=== PATIENT | female | born 1950 | race Two or more races ===

== ENCOUNTER 2017-06-11 19:35 | Emergency (ER) | payer OTHER ==
[~2017-06-11] VITALS: Ht 152.4 cm; Wt 67.1 kg
[~2017-06-11 19:35] MED LIST: ASA81 MG PO; DIOVAN40 MG PO
[2017-06-11] MEDS ORDERED: CARDIZEM60 MG (20:04)
== END 2017-06-11 22:02 | disposition home or self-care (01) ==
LOC: ER 19:35
DX: R07.89 Other chest pain (principal)

== ENCOUNTER 2018-07-10 08:41 | Outpatient (CLI) | payer OTHER ==
[~2018-07-10 08:41] MED LIST changes: +CARDIZEM60 MG
== END 2018-07-10 09:00 | disposition home or self-care (01) ==
LOC: MAMO-SONO 08:41
DX: Z12.31 Encounter for screening mammogram for malignant neoplasm of breast (principal); Z87.898 Personal history of other specified conditions; N60.11 Diffuse cystic mastopathy of right breast

== ENCOUNTER 2018-07-10 10:06 | Outpatient (CLI) | payer OTHER | END 2018-07-10 12:00 | disposition home or self-care (01) | LOC: NUCLEAR 10:06 | DX: N19 Unspecified kidney failure (principal); N13.9 Obstructive and reflux uropathy, unspecified | CPT/HCPCS: 78708; A9539 ==

== ENCOUNTER 2020-09-20 19:59 | Emergency (ER) | payer OTHER ==
[~2020-09-20] VITALS: Ht 154.9 cm; Wt 61.2 kg
[2020-09-20] MEDS ORDERED: FORTAMET500 MG (20:31)
[2020-09-20] MEDS ORDERED: XANAX XR2 MG (20:40)
[2020-09-21] MEDS ORDERED: INTESTINEX680 M1 PO (15:27)
[2020-09-21] MEDS ORDERED: PEPCID AC20 MG PO (15:27)
== END 2020-09-21 15:46 | disposition home or self-care (01) ==
LOC: ER 19:59
DX: K52.89 Other specified noninfective gastroenteritis and colitis (principal); E87.6 Hypokalemia; R11.2 Nausea with vomiting, unspecified; I10 Essential (primary) hypertension

== ENCOUNTER 2023-03-24 10:05 | Emergency (ER) | payer OTHER ==
[~2023-03-24] VITALS: Ht 154.9 cm; Wt 62.1 kg
[~2023-03-24 10:05] MED LIST changes: +FORTAMET500 MG; +INTESTINEX680 M1 PO; +PEPCID AC20 MG PO; +XANAX XR2 MG
[2023-03-24 11:08] LABS: HEMATOCRIT 37.7 % (36.0-45.00); HEMOGLOBIN 13.2 g/dL (12.0-15.00); MEAN CELL VOLUME 87.5 fL (80.00-100.00); MEAN CORPUSCULAR HEMOGLOBIN 30.7 pg (27.00-32.0); MEAN CORPUSCULAR HGB CONC 35.1 g/dl (32.0-36.0); PLATELET COUNT 262 K/uL (150-450); RED BLOOD COUNT 4.31 M/uL (4.00-6.00); RED CELL DISTRIBUTION WIDTH 14.1 % (11.5-14.5)
[2023-03-24 11:30] LABS: CREATININE SERUM 0.89 mg/dL (0.55-1.02)
[2023-03-24 11:31] LABS: POTASSIUM 2.67 mEq/L (3.5-5.1)
== END 2023-03-24 16:18 | disposition home or self-care (01) ==
LOC: ER 10:05
PROVIDERS: General Practice
DX: R55 Syncope and collapse (principal); I10 Essential (primary) hypertension; E11.9 Type 2 diabetes mellitus without complications; Z79.84 Long term (current) use of oral hypoglycemic drugs